=== PATIENT | male | born 1960 | race African-American/Black ===

== ENCOUNTER 2018-02-09 19:27 | Emergency (ER) | payer OTHER ==
[~2018-02-09] VITALS: Ht 172.7 cm; Wt 99.8 kg
[2018-02-09 19:35] VITALS: BP 131/86
[2018-02-09] MEDS ORDERED: LORAZEPAM 1 MG TABLET ONE (20:51)
[2018-02-09] MEDS ORDERED: LORAZEPAM 1 MG TABLET PO ONE (21:00)
[2018-02-09] MEDS ORDERED: CEPHALEXIN MONOHYDRATE 500 MG CAPSULE PO ONE ×2 (22:00→22:02)
[2018-02-09] MEDS ORDERED: SULFAMETH/TRIMETH 800/160 MG 1 UDTAB TABLET PO ONE ×2 (22:00→22:03)
== END 2018-02-09 22:06 | disposition home or self-care (01) ==
LOC: ER 19:30
DX: H60.02 Abscess of left external ear (principal); I10 Essential (primary) hypertension; F17.200 Nicotine dependence, unspecified, uncomplicated
CPT/HCPCS: A4606; A6402; Z7610

== ENCOUNTER 2022-07-07 20:58 | Emergency (ER) | payer OTHER ==
[~2022-07-07] VITALS: Ht 172.7 cm; Wt 99.8 kg
--- NOTE | 2022-07-07 21:45 | NUR ---
SUPERVISOR COMPOUNDING AND FINISHING AT PT'S BEDSIDE
--- NOTE | 2022-07-07 21:57 | NUR ---
RAC #18G S/L BLOOD COLLECTED AND SENT TO LAB
[2022-07-07 22:07] LABS: BASOPHILS % (AUTO) 0.1 % (0.0-2.0); HEMATOCRIT 44 % (39-51); HEMOGLOBIN 14.8 g/dL (13.5-17.5); LYMPHOCYTES # (AUTO) 0.6 K/uL (0.8-4.8); LYMPHOCYTES % (AUTO) 4.5 % (20.0-44.0); MEAN CORPUSCULAR HGB CONC 34 g/dl (31.0-36.0); MEAN CORPUSCULAR VOLUME 94 fL (80-96); MONOCYTES # (AUTO) 0.6 K/uL (0.1-1.30); MONOCYTES % (AUTO) 4.7 % (2.0-12.0); NEUTROPHILS # (AUTO) 11.4 K/uL (1.8-8.9); NEUTROPHILS % (AUTO) 90.7 % (43.0-81.0); PLATELET COUNT (AUTO) 157 K/uL (150-450); RED BLOOD CELL COUNT(AUTO) 4.64 MIL/uL (4.5-6.0); WHITE BLOOD COUNT (AUTO) 12.6 K/uL (4.3-11.0)
[2022-07-07 22:27] LABS: CALCIUM, SERUM 9.2 mg/dL (8.5-10.1); CARBON DIOXIDE 28 mmol/L (21-32); CHLORIDE 99 mmol/L (98-107); CREATININE 1.3 mg/dL (0.6-1.3); GLUCOSE 116 mg/dL (74-106); SODIUM SERUM 132 mmol/L (136-145); UREA NITROGEN, BLOOD 21 mg/dL (7-18)
[2022-07-07] MEDS ORDERED: ACETAMINOPHEN 325 MG TABLET PO ONE (22:30)
[2022-07-07] MEDS ORDERED: ACETAMINOPHEN ES 500 MG TABLET ONE (22:43)
--- NOTE | 2022-07-07 22:49 | NUR ---
COVID ANTIGEN AND INFLUENZA SWAB COLLECTED AND SENT TO LAB. OFFERED PT URINAL; AWAITING FOR URINE SAMPLE. WILL F/U
--- NOTE | 2022-07-07 23:20 | NUR ---
URINE COLLECTED AND SENT TO LAB
[2022-07-07 23:32] LABS: BILIRUBIN,URINE NEGATIVE (NEGATIVE); COLOR,URINE YELLOW (YELLOW); LEUKOCYTE ESTERASE ,URINE NEGATIVE (NEGATIVE); NITRITE, URINE NEGATIVE (NEGATIVE); PH,URINE 5.5 (5.0-8.0); PROTEIN,URINE NEGATIVE (NEGATIVE); UGLUCOSE NEGATIVE (NEGATIVE); UROBILINOGEN,URINE 0.2 EU/dL (0.2)
--- NOTE | 2022-07-08 00:20 | NUR ---
GASTROENTEROLOGY MANAGER AT PT'S BEDSIDE
--- NOTE | 2022-07-08 01:25 | NUR ---
Patient does not wish to proceed with medical care recommended by Dr. Shira ESCALANTE. Patient given information related to possible complications, up to and including , which could occur as a result of leaving the hospital at this time. Patient verbalizes understanding of risks involved due to leaving against medical advice. Patient has signed AMA form. IV removed. Catheter intact and site benign. Pressure and 4x4 applied to site. No bleeding noted.
[2022-07-08 01:26] VITALS: BP 97/54
== END 2022-07-08 01:26 | disposition left against medical advice (07) ==
LOC: ER 21:00
DX: R50.9 Fever, unspecified (principal); Z20.822 Contact with and (suspected) exposure to COVID-19; Z53.29 Procedure and treatment not carried out because of patient's decision for other reasons; R00.0 Tachycardia, unspecified; J98.11 Atelectasis; I10 Essential (primary) hypertension; Z95.1 Presence of aortocoronary bypass graft
CPT/HCPCS: 99285; 71045; 87426; 93005; 87804; 85025; 80048; 81003; 36415 ×2; 84484 ×2; 83880; C9803